=== PATIENT | female | born 1945 | race Caucasian/White ===

== ENCOUNTER 2017-08-19 06:35 | Day surgery (SDC) | payer OTHER, BC ==
[2017-08-18 10:28] VITALS: BMI 25.3
[2017-08-19] MEDS ORDERED: PROPOFOL 20 ML ONE ×2 (07:39)
[2017-08-19] MEDS ORDERED: LIDOCAINE HCL/PF 2% SDV 5ML VIAL ONE (07:40)
[2017-08-19] MEDS ORDERED: SUCCINYLCHOLINE CHLORIDE 200 MG/10 ML VIAL ONE (07:40)
[2017-08-19 08:33] VITALS: TEMP 97.8
[2017-08-19 09:28] VITALS: BP 123/60; PULSE 66
--- NOTE | 2017-08-20 17:32 | PATH ---
Surgical Pathology Report Patient Name: UBRAN LIU [facility]. Rec. #: [id number] /Age/Gender: 1945 (Age: 72) / F Account: [id number] Location: U-ENDOSCOPY Taken: 08/19/2017 Received: 08/19/2017 Reported: 08/20/2017 Physicians: Joseph Sprague M.D. Specimen(s) Received A: BX CECUM POLYP B: BX TRANSVERSE COLON Clinical History History of polyps, screening Final Diagnosis A. CECAL POLYP, POLYPECTOMY: TUBULAR ADENOMA. B. TRANSVERSE COLON, POLYPECTOMY: TUBULAR ADENOMA. Electronically Signed Natalie Cuba M.D. Gross Description A. Received in formalin, labeled "polyp cecum" are 3 macias, irregular portions of soft tissue averaging 0.3 cm. in greatest dimension. The specimens are submitted in toto in one cassette. B. Received in formalin, labeled "polyp transverse colon" is a amcias, irregular portion of soft tissue measuring 0.3 cm. in greatest dimension. The specimen is submitted in toto in one cassette. /08/19/2017 [facility]08/19/2017
== END 2017-08-19 09:30 | disposition home or self-care (01) ==
LOC: JASU-ENDO 06:35
PROVIDERS: ATTEND Internal Medicine Gastroenterology
PROC: 0DBL8ZX Excision of Transverse Colon, Via Natural or Artificial Opening Endoscopic, Diagnostic (ICD-10-PCS; 2017-08-19)
PROC: 0DBH8ZX Excision of Cecum, Via Natural or Artificial Opening Endoscopic, Diagnostic (ICD-10-PCS; principal; 2017-08-19 08:00)
DX: Z12.11 Encounter for screening for malignant neoplasm of colon (principal); Z86.010 Personal history of colon polyps; Z80.0 Family history of malignant neoplasm of digestive organs; D12.0 Benign neoplasm of cecum; D12.3 Benign neoplasm of transverse colon; K57.30 Diverticulosis of large intestine without perforation or abscess without bleeding
CPT/HCPCS: 88305-TC